=== PATIENT | male | born 1985 | race Asian ===

== ENCOUNTER 2017-06-10 23:59 | Emergency (ER) | payer SELFPAY ==
[~2017-06-10] VITALS: Ht 160 cm; Wt 105.0 kg
[~2017-06-10 23:59] MED LIST: ALBU18HF INH; BECL8.7A7 INH; MONT10TA9 PO; NAPR-685 PO; TRIA15OI TP
[2017-06-11 00:09] VITALS: BP 145/97
[2017-06-11 01:42] LABS: MICROSCOPIC NOT IND
[2017-06-11 01:54] LABS: CULTURE INDICATED? NO
== END 2017-06-11 03:37 | disposition home or self-care (01) ==
LOC: ED 23:59
DX: R10.32 Left lower quadrant pain (principal); R21 Rash and other nonspecific skin eruption; E66.9 Obesity, unspecified
CPT/HCPCS: 81003; 99283